=== PATIENT | female | born 2000 | race African-American/Black ===

== ENCOUNTER 2022-01-14 02:06 | Emergency (ER) | payer MEDICAID ==
[~2022-01-14] VITALS: Ht 162.6 cm; Wt 57.0 kg
[2022-01-14 02:24] VITALS: BP 128/82
[2022-01-14 03:17] LABS: BASOPHILS % 0.4 % (0.0-2.0); EOSINOPHILS % 1.5 % (0.0-5.0); HEMOGLOBIN. 12.7 g/dL (12.0-16.0); LYMPHOCYTES % 23.6 % (20.0-50.0); MEAN CORPUSCULAR HEMOGLOBIN 31.2 pg (28.0-32.0); MEAN CORPUSCULAR VOLUME 93.5 fL (81.0-99.0); MEAN PLATELET VOLUME 7.4 fl (7.4-10.4); MONOCYTES % 7.4 % (2.0-8.0); NEUTROPHILS % 67.1 % (40.0-76.0); PLATELET 265 x1000/uL (130-400); RED BLOOD CELL COUNT 4.06 mill/uL (4.2-5.4); RED CELL DISTRIBUTION WIDTH 12.6 % (11.6-14.6)
[2022-01-14 03:31] LABS: CHLORIDE 108 mEq/L (98-107)
[2022-01-14 03:38] LABS: ETHANOL BLOOD < 10 mg/dL
== END 2022-01-14 10:53 | disposition left against medical advice (07) ==
LOC: ER 02:24
DX: Z53.21 Procedure and treatment not carried out due to patient leaving prior to being seen by health care provider (principal)
CPT/HCPCS: 36415; 80053; 80320; 85025; 93005; G0480